=== PATIENT | female | born 1995 | race Caucasian/White ===

== ENCOUNTER 2017-02-07 02:52 | Inpatient (IN) | payer OTHER ==
[~2017-02-07] VITALS: Ht 154.9 cm; Wt 92.0 kg
[~2017-02-07 02:52] MED LIST: AMOXICILLIN500 MG PO; AMOXICILLIN875 MG PO; CIPROFLOXACIN500 MG PO; DULOXETINE HCL60 MG PO; IBUPROFEN600 MG PO; MOTRIN600 MG PO; NAPROXEN500 MG PO; NORCO 5-325 TA1 EACH PO; ONDANSETRON ODT4 MG PO; PRENATA CHEWAB1 EACH PO; PROZAC20 MG; PROZAC20 MG PO; REGLAN10 MG PO; TYLENOL WITH C1 EACH PO; ULTRAM50 MG PO; UNISOM25 MG PO; VITAMIN B COMP1 EACH PO; VITAMIN B-625 MG PO; VITAMIN D1000 UNIT PO; VITAMIN D250000 UNIT PO; ZOFRAN ODT4 MG PO; ZOFRAN8 MG PO
--- NOTE | 2017-02-08 08:34 | PR ---
[facility] [address] [place], [place] [address] Signed PP Progress Notes Datetime Report Generated by CPN: 02/08/2017 08:34 SUBJECTIVE: [id number] Pain: Within normal limits Nausea/Vomiting: Denies Vital Signs: [id number] Vital Signs: Reviewed; Within Normal Limits EXAM: [id number] Cardiovascular: Not Done Respiratory: Not Done Abdomen/Uterus: Abnormal Lochia: Normal Vulva/Perineum: Not Done Breasts: Not Done CVA Tenderness: Not Done Extremities: Normal Incision: Not Applicable Progress: Not Applicable Exam Comments: Fundus firm, NT @ U-1. H/H 9.4/27.8, WBC 10.6, plat 265k IMPRESSION/PLAN/PROCEDURES: [id number] Impression: Normal progression Plan: Continue present management Procedures: None Progress Notes: Doing well. Will continue observation. Signing Physician: La Garcia MD CC: *Electronically Signed* 02/08/17 0834 LA GARCIA MD PATIENT NAME: ILANA NORRISCamron GORDONEN PROGRESS NOTE DATE OF : 89 PHYSICIAN: LA GARCIA MD RPT #: [id number] REPORT IS CONFIDENTIAL AND NOT TO BE RELEASED WITHOUT AUTHORIZATION
--- NOTE | 2017-02-09 09:43 | PR ---
[facility] [address] [place], [place] [address] Signed PP Progress Notes Datetime Report Generated by CPN: 02/09/2017 09:43 SUBJECTIVE: [id number] Pain: Within normal limits Nausea/Vomiting: Denies Vital Signs: [id number] Vital Signs: Reviewed; Within Normal Limits EXAM: [id number] Cardiovascular: Not Done Respiratory: Not Done Abdomen/Uterus: Abnormal Lochia: Normal Vulva/Perineum: Not Done Breasts: Not Done CVA Tenderness: Not Done Extremities: Normal Incision: Not Applicable Progress: Not Applicable Exam Comments: Fundus firm, NT @ U-1. IMPRESSION/PLAN/PROCEDURES: [id number] Impression: Normal progression Plan: Discharge Procedures: None Progress Notes: Doing well. She is ready for D/C. Signing Physician: La Garcia MD CC: *Electronically Signed* 02/09/17 0943 LA GARCIA MD PATIENT NAME: BENJI NORRIS PROGRESS NOTE DATE OF : 89 PHYSICIAN: LA GARCIA MD RPT #: [id number] REPORT IS CONFIDENTIAL AND NOT TO BE RELEASED WITHOUT AUTHORIZATION
== END 2017-02-09 11:30 | disposition home or self-care (01) | DRG 775 ==
LOC: FBCO 02:52 → FBC 03:35
PROVIDERS: ADMIT Obstetrics & Gynecology
PROC: 10E0XZZ Delivery of Products of Conception, External Approach (ICD-10-PCS; principal; 2017-02-07)
PROC: 0HQ9XZZ Repair Perineum Skin, External Approach (ICD-10-PCS; 2017-02-07)
PROC: 3E0S3BZ Introduction of Anesthetic Agent into Epidural Space, Percutaneous Approach (ICD-10-PCS; 2017-02-07)
PROC: 00HU33Z Insertion of Infusion Device into Spinal Canal, Percutaneous Approach (ICD-10-PCS; 2017-02-07)
DX: O60.14X0 Preterm labor third trimester with preterm delivery third trimester, not applicable or unspecified (principal); O70.0 First degree perineal laceration during delivery; O43.113 Circumvallate placenta, third trimester; Z3A.35 35 weeks gestation of pregnancy; Z37.0 Single live birth
CPT/HCPCS: 01960; 36415; 59025; 84112; 85027; 99213; J2540; J2590; J2795; J7120

== ENCOUNTER 2021-09-18 08:42 | Emergency (ER) | payer OTHER ==
[~2021-09-18] VITALS: Ht 154.9 cm; Wt 91.6 kg
--- OUTSIDE RECORDS SUMMARY | 2021-09-18 08:46 | XMS ---
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 Bijal has no Care Guidelines for this patient. Terri VISIT COUNT (12 MO.) 1 ARM[facility] Bell TOTAL 1 NOTE: Visits indicate total known visits. ED/C VISIT TRACKING (12 MO.) 09/18/2021 08:44 ARM[facility] Baez OR TYPE: Emergency COMPLAINT: - EYE PAIN/ PROBLEM INPATIENT VISIT TRACKING (12 MO.) No inpatient visits to display in this time frame [email or web address]
[2021-09-18] MEDS ORDERED: PROPRANOLOL HCL10 MG PO (09:00)
[2021-09-18] MEDS ORDERED: LORAZEPAM1 MG PO (09:01)
[2021-09-18] MEDS ORDERED: BLEPH-105 ML OPTH (09:29)
== END 2021-09-18 09:43 | disposition home or self-care (01) ==
LOC: ED 08:42
DX: H10.9 Unspecified conjunctivitis (principal); F17.200 Nicotine dependence, unspecified, uncomplicated; Z79.899 Other long term (current) drug therapy
CPT/HCPCS: 99283

== ENCOUNTER 2023-03-22 13:40 | Emergency (ER) | payer OTHER ==
[~2023-03-22] VITALS: Ht 154.9 cm; Wt 60.0 kg
[~2023-03-22 13:40] MED LIST changes: +BLEPH-105 ML OPTH; +CIPRO500 MG PO; +LORAZEPAM1 MG PO; +PROPRANOLOL HCL10 MG PO
[2023-03-22] MEDS ORDERED: BUPROPION XL450 MG (13:58)
[2023-03-22] MEDS ORDERED: CLONAZEPAM0.5 MG (13:58)
[2023-03-22] MEDS ORDERED: GRALISE300 MG (13:58)
[2023-03-22 17:24] LABS: BILIRUBIN, URINE NEGATIVE (negative); BLOOD/HGB, URINE NEGATIVE (Negative); KETONE, URINE NEGATIVE (Negative); LEUK ESTERASE, URINE NEGATIVE (negative); NITRITE, URINE NEGATIVE (negative)
[2023-03-22 19:27] VITALS: BP 137/89
== END 2023-03-22 19:29 | disposition home or self-care (01) ==
LOC: ED 13:40
PROVIDERS: Emergency Medicine
DX: T83.32XA Displacement of intrauterine contraceptive device, initial encounter (principal); F17.200 Nicotine dependence, unspecified, uncomplicated; Z79.899 Other long term (current) drug therapy; Y76.2 Prosthetic and other implants, materials and accessory obstetric and gynecological devices associated with adverse incidents
CPT/HCPCS: 81003; 84703; 99284